=== PATIENT | female | born 1970 | race Caucasian/White ===

== ENCOUNTER 2018-12-25 12:38 | Emergency (ER) | payer OTHER ==
--- NOTE | 2018-12-25 13:21 | EDM.PDOC ---
ED HPI GENERAL MEDICAL PROBLEM - General Chief Complaint: Abdominal Pain Stated Complaint: ABDOMINAL PAIN Time Seen by Provider: 12/25/18 13:21 - History of Present Illness INITIAL COMMENTS - FREE TEXT/NARRATIVE: Pt presents c/o ruq pain started after eating pizza today. PT with hx of gallstones. Pain has started to improve. Onset: Today Location: Reports: Abdomen Quality: Reports: Ache Severity: Mild Improves with: Reports: None Right Upper Abdomen Pain Score (Numeric/FACES): 10 - Related Data Allergies Allergy/AdvReac Type Severity Reaction Status Date / Time No Known Allergies Allergy Verified 12/25/18 12:51 Home Meds: Home Meds . [Unable to Verify Home Med List] 12/25/18 [History] Past Medical History Endocrine/Metabolic History: Reports: Hypothyroidism Social & Family History - Tobacco Use Smoking Status *Q: Former Smoker Used Tobacco, but Quit: Yes Month/Year Tobacco Last Used: 2014 ED ROS GENERAL - Review of Systems Review Of Systems: See Below Constitutional: Reports: No Symptoms HEENT: Reports: No Symptoms Respiratory: Reports: No Symptoms Cardiovascular: Reports: No Symptoms Endocrine: Reports: No Symptoms GI/Abdominal: Reports: Abdominal Pain : Reports: No Symptoms Musculoskeletal: Reports: No Symptoms Skin: Reports: No Symptoms Neurological: Reports: No Symptoms Psychiatric: Reports: No Symptoms Hematologic/Lymphatic: Reports: No Symptoms Immunologic: Reports: No Symptoms ED EXAM, GI/ABD - Physical Exam Exam: See Below Text/Narrative:: PT with ruq pain started after eating pizza. Pt with hx of gallstones. Pain has started to improve. Pt given toradol 15 mg IV for pain. Ct noted cholelithiasis without cholecystitis. Right breast mass 33 mm Fattey liver Exam Limited By: Altered Mental Status General Appearance: Alert, WD/WN Ears: Normal External Exam Nose: Normal Inspection Throat/Mouth: Normal Inspection Head: Atraumatic, Normocephalic Neck: Normal Inspection Respiratory/Chest: No Respiratory Distress, Lungs Clear, Normal Breath Sounds Cardiovascular: Normal Peripheral Pulses GI/Abdominal Exam: Normal Bowel Sounds, Soft, Tender Back Exam: Normal Inspection, Full Range of Motion Extremities: Normal Inspection, Normal Range of Motion Neurological: Alert, Oriented Psychiatric: Normal Affect, Normal Mood Skin Exam: Warm, Dry, Intact Course - Vital Signs Last Recorded V/S: Last Vital Signs Temp 36.4 C 12/25/18 12:48 Pulse 94 12/25/18 12:48 Resp 22 H 12/25/18 12:48 BP 144/72 H 12/25/18 12:48 Pulse Ox 95 12/25/18 12:48 - Orders/Labs/Meds Orders: Active Orders 24 hr Category Date Time Status Sodium Chloride 0.9% [Saline Flush] Med 12/25/18 13:22 Active 10 ml FLUSH ASDIRECTED PRN Peripheral IV Insertion Adult [OM.PC] Routine Oth 12/25/18 13:22 Ordered Medication Orders Sodium Chloride (Saline Flush) 10 ml FLUSH ASDIRECTED PRN PRN Reason: Keep Vein Open Labs: Laboratory Tests 12/25/18 12/25/18 12/25/18 Range/Units 13:32 13:32 13:44 WBC 7.1 (4.0-10.0) x10^3/uL RBC 3.86 L (4.00-5.50) x10^6/uL Hgb 12.2 (12.0-16.0) g/dL Hct 36.4 (33.0-47.0) % MCV 94.3 H (78.0-93.0) fL MCH 31.6 (26.0-32.0) pg MCHC 33.5 (32.0-36.0) g/dL RDW Coeff of Saroj 12.3 (10.0-15.0) % Plt Count 265 (130-400) x10^3/uL Sodium (69-191) mmol/L Potassium (1.5-9.9) mmol/L Chloride (54-184) mmol/L Carbon Dioxide (21-32) mmol/L Anion Gap (10-20) mmol/L BUN (7-18) mg/dL Creatinine (0.55-1.02) mg/dL Est Cr Clr Drug Dosing Estimated GFR (MDRD) Glucose (74-106) mg/dL Calcium (8.5-10.1) mg/dL Amylase (25-115) U/L Lipase (73-393) U/L Urine Color Yellow (YELLOW) Urine Appearance Clear (CLEAR) Urine pH 7.0 (5.0-8.0) Ur Specific Fitzgerald 1.015 Urine Protein Negative (NEGATIVE) mg/dL Urine Glucose (UA) Negative (NEGATIVE) mg/dL Urine Ketones Negative (NEGATIVE) mg/dL Urine Occult Blood Trace-intact H (NEGATIVE) Urine Nitrite Negative (NEGATIVE) Urine Bilirubin Negative (NEGATIVE) Urine Urobilinogen 0.2 (0.2) EU/dL Ur Leukocyte Esterase Negative (NEGATIVE) Urine RBC 0-5 (NOT SEEN) /HPF Urine WBC 0-5 (NOT SEEN) /HPF Ur Squamous Epith Cells Rare (NEGATIVE) /HPF Urine Bacteria Not seen (NEGATIVE) /HPF Urine Mucus Not seen (NEGATIVE) /LPF Urine HCG, Qual Negative (NEGATIVE) 12/25/18 Range/Units 13:44 WBC (4.0-10.0) x10^3/uL RBC (4.00-5.50) x10^6/uL Hgb (12.0-16.0) g/dL Hct (33.0-47.0) % MCV (78.0-93.0) fL MCH (26.0-32.0) pg MCHC (32.0-36.0) g/dL RDW Coeff of Asroj (10.0-15.0) % Plt Count (130-400) x10^3/uL Sodium 142 (69-191) mmol/L Potassium 3.4 L (1.5-9.9) mmol/L Chloride 103 (54-184) mmol/L Carbon Dioxide 27 (21-32) mmol/L Anion Gap 15.4 (10-20) mmol/L BUN 11 (7-18) mg/dL Creatinine 0.9 (0.55-1.02) mg/dL Est Cr Clr Drug Dosing TNP Estimated GFR (MDRD) > 60 Glucose 117 H (74-106) mg/dL Calcium 8.6 (8.5-10.1) mg/dL Amylase 31 (25-115) U/L Lipase 112 (73-393) U/L Urine Color (YELLOW) Urine Appearance (CLEAR) Urine pH (5.0-8.0) Ur Specific Fitzgerald Urine Protein (NEGATIVE) mg/dL Urine Glucose (UA) (NEGATIVE) mg/dL Urine Ketones (NEGATIVE) mg/dL Urine Occult Blood (NEGATIVE) Urine Nitrite (NEGATIVE) Urine Bilirubin (NEGATIVE) Urine Urobilinogen (0.2) EU/dL Ur Leukocyte Esterase (NEGATIVE) Urine RBC (NOT SEEN) /HPF Urine WBC (NOT SEEN) /HPF Ur Squamous Epith Cells (NEGATIVE) /HPF Urine Bacteria (NEGATIVE) /HPF Urine Mucus (NEGATIVE) /LPF Urine HCG, Qual (NEGATIVE) Meds: Medications Generic Name Dose Route Start Last Admin Trade Name Freq PRN Reason Stop Dose Admin Sodium Chloride 10 ml 12/25/18 13:22 Saline Flush FLUSH ASDIRECTED PRN Keep Vein Open Discontinued Medications Generic Name Dose Route Start Last Admin Trade Name Freq PRN Reason Stop Dose Admin Iopamidol 100 ml 12/25/18 14:31 12/25/18 14:54 Isovue-300 (61%) IVPUSH 12/25/18 14:32 100 ml ONETIME ONE Administration Ketorolac Tromethamine 15 mg 12/25/18 14:59 12/25/18 15:09 Toradol IVPUSH 12/25/18 15:00 15 mg ONETIME ONE Administration Departure - Departure Time of Disposition: 15:46 Disposition: Home, Self-Care 01 Clinical Impression: Cholelithiasis, Breast mass, right, Fatty liver - Discharge Information Instructions: Cholelithiasis Forms: ED Department Discharge Additional Instructions: Follow up with pcp for continued care. - My Orders Last 24 Hours: My Active Orders 12/25/18 13:22 Sodium Chloride 0.9% [Saline Flush] 10 ml FLUSH ASDIRECTED PRN Peripheral IV Insertion Adult [OM.PC] Routine - Assessment/Plan Last 24 Hours: My Active Orders 12/25/18 13:22 Sodium Chloride 0.9% [Saline Flush] 10 ml FLUSH ASDIRECTED PRN Peripheral IV Insertion Adult [OM.PC] Routine
[2018-12-25] MEDS ORDERED: Sodium Chloride 0.9% 10 ML Syringe FLUSH PRN (13:22)
[2018-12-25 14:03] LABS: CHLORIDE,CL 103 mmol/L (54-184); SODIUM,NA 142 mmol/L (69-191)
[2018-12-25 14:06] LABS: ANION GAP 15.4 mmol/L (10-20)
[2018-12-25] MEDS ORDERED: Iopamidol 612 MG/ML 100 ML Bottle IVPUSH ONE (14:31)
[2018-12-25] MEDS ORDERED: Ketorolac 15 MG/ML SDV IVPUSH ONE (14:59)
--- NOTE | 2018-12-25 15:33 | CT ---
[id number] CT/CT Abdomen Pelvis W IV EXAM: ABDOMEN AND PELVIS CT WITH CONTRAST INDICATION: Right upper quadrant abdominal pain after eating. COMPARISON: None. DISCUSSION: The gallbladder is filled with calcified stones. No wall thickening or inflammatory changes are evident by CT to suggest acute cholecystitis. The liver demonstrates fatty infiltration. 3 cm indeterminate area in the right lobe of the liver that is hyperdense relative to the surrounding parenchyma. If the patient has a history of malignancy or liver disease an abdomen MRI with and without contrast could provide further evaluation. In the lateral right breast there is a 33 x 19 mm mass possibly representing a cyst. Mammogram and ultrasound would be suggested if this has not been previously evaluated. The pancreas, spleen, adrenal glands, kidneys, small bowel, large bowel and the appendix are normal in appearance. No adenopathy, free air or free fluid. The osseous structures are unremarkable. IMPRESSION: 1. Cholelithiasis without CT evidence of acute cholecystitis. 2. 33 mm right breast mass. Consider mammogram and ultrasound if not previously evaluated. 3. Indeterminate 30 mm slightly hyperdense right hepatic mass. If the patient has a history of liver disease or malignancy, abdomen MRI with and without contrast would be useful for further characterization. Gigi Dorsey MD 12/25/18 1532 Thank you for allowing us to participate in the care of your patient.
== END 2018-12-25 15:54 | disposition home or self-care (01) ==
LOC: VM.ED 12:38
DX: K80.20 Calculus of gallbladder without cholecystitis without obstruction (principal); N63.0 Unspecified lump in unspecified breast; K76.0 Fatty (change of) liver, not elsewhere classified; Z87.891 Personal history of nicotine dependence
CPT/HCPCS: 36415; 74177; 80048; 81001; 81025; 82150; 83690; 85027; 96374; 99284; J1885; Q9967